=== PATIENT | female | born 1980 | race Caucasian/White ===

== ENCOUNTER 2018-11-03 13:30 | Emergency (ER) | payer SELFPAY ==
--- OUTSIDE RECORDS SUMMARY | 2018-11-03 13:34 | XMS REPORT | Clinical Summary ---
:1980 Author Organization [facility] Address [address] [place] [address] Care Team Providers Name Role Phone Jesusita Martinez DO Primary Care Provider Allergies No Known Allergies Medications Medication Sig Dispensed Refills Start Date End Date Status benztropine TAKE 1 TABLET 1 02/01/2018 Active (COGENTIN) 1 MG BY MOUTH TWICE tablet A DAY FOR EPS haloperidol Take 5 mg by 1 02/01/2018 Active (HALDOL) 5 MG mouth 2 (two) tablet times a day. hydrOXYzine TAKE 1 CAPSULE 0 02/08/2018 Active (VISTARIL) 25 MG BY MOUTH capsule NEEDED ONCE A NIGHT NEEDED FOR SLEEP ORALLY 30 DAYS QUEtiapine Take 200 mg by 1 02/01/2018 Active (SEROquel) 200 MG mouth nightly. tablet divalproex Take 500 mg by 1 02/01/2018 Active (DEPAKOTE) 500 MG mouth 2 (two) 24 hr tablet times a day. lamoTRIgine Take 150 mg by 1 01/20/2018 Active (LaMICtal) 150 MG mouth daily. tablet IBU 600 mg tablet Take 600 mg by 3 12/26/2017 Active mouth 3 (three) times a day as needed. etodolac (LODINE) Take 1 tablet 60 tablet 0 02/13/2018 02/13/2019 Active 400 MG (400 mg total) tabletIndications: by mouth 3 Acute pain of left (three) times knee a day as needed (moderate pain). etodolac (LODINE) TAKE 1 TABLET 1 02/08/2018 02/13/2018 Discontinued 400 MG tablet BY MOUTH TWICE A DAY FOR KNEE PAIN Active Problems Problem Noted Date Acute pain of left knee 02/13/2018 Schizophrenic disorder 02/13/2018 Bipolar 1 disorder 02/13/2018 Encounters Date Type Specialty Care Team Description 02/27/2018 Office Visit Orthopedic Surgery Jesusita Martinez, Patellar tendinitis of left knee (Primary Dx); DO Acute pain of left knee Majo Yu MD 02/13/2018 Lab Lab Jesusita Martinez, Acute pain of left knee DO 02/13/2018 Office Visit Family Medicine Jesusita Martinez, Acute pain of left knee (Primary Dx); DO Schizophrenic disorder; Bipolar 1 disorder after 11/02/2017 Family History Relation Name Status Comments Father Alive Mother Alive Social History Tobacco Use Types Packs/Day Years Used Date Never Smoker Smokeless Tobacco: Never Used Alcohol Use Drinks/Week oz/Week Comments Yes about 5 drinks a week Sex Assigned at Date Recorded Not on file Job Start Date Occupation Industry Not on file Not on file Not on file Travel History Travel Start Travel End No recent travel history available. Last Filed Vital Signs Vital Sign Reading Time Taken Blood Pressure 96/60 02/13/2018 9:36 AM CDT Pulse 97 02/13/2018 9:36 AM CDT Temperature - - Respiratory Rate - - Oxygen Saturation 95% 02/13/2018 9:36 AM CDT Inhaled Oxygen Concentration - - Weight 81.6 kg (180 lb) 02/13/2018 9:36 AM CDT Height - - Body Mass Index - - Plan of Treatment Health Maintenance Due Date Last Done Comments CERVICAL CANCER SCREENING 2001 INFLUENZA VACCINE 01/18/2019 Procedures Procedure Name Priority Date/Time Associated Comments Diagnosis XR KNEE 3 VW LEFT Routine 02/13/2018 2:38 Acute pain of left Results for this PM CDT knee procedure are in the results section. COMPREHENSIVE Routine 02/13/2018 2:10 Acute pain of left Results for this METABOLIC PANEL PM CDT knee procedure are in the results section. after 11/02/2017 Results XR Knee 3 Vw Left (02/13/2018 2:38 PM CDT) Narrative Performed At EXAMINATION:XR KNEE 3 VW LEFT [facility] CLINICAL HISTORY:M25.562 Pain in left knee, Left knee pain for 6 weeks COMPARISON:No Prior FINDINGS: No fracture or dislocation.Bony prominence noted at the proximal tibiofibular joint. Remaining joint spaces are maintained. Soft tissues are unremarkable. IMPRESSION: Focal bony prominence of the proximal tibiofibular joint. Unclear if this represents a small osteochondroma or early degenerative change. CT or MRI may be obtained for follow-up. Procedure Note Interface, Radiology Results 02/13/2018 3:58 PM CDT EXAMINATION: XR KNEE 3 VW LEFT CLINICAL HISTORY: M25.562 Pain in left knee, Left knee pain for 6 weeks COMPARISON: No Prior FINDINGS: No fracture or dislocation. Bony prominence noted at the proximal tibiofibular joint. Remaining joint spaces are maintained. Soft tissues are unremarkable. IMPRESSION: Focal bony prominence of the proximal tibiofibular joint. Unclear if this represents a small osteochondroma or early degenerative change. CT or MRI may be obtained for follow-up. Performing Organization Address City/State/Zipcode Phone Number [facility] [address] [place] [address] Comprehensive metabolic panel (02/13/2018 2:10 PM CDT) Glucose 101 (H) 65 - 99 mg/dL [facility] BUN, whole blood 12 6 - 20 mg/dL [facility] Creatinine 0.73 0.57 - 1.00 mg/dL [facility] EGFR Non-Afr. Austrian 106 >59 mL/min/1.73 [facility] EGFR 122 >59 mL/min/1.73 [facility] BUN/creatinine ratio 16 9 - 23 [facility] Sodium 141 134 - 144 mmol/L [facility] Potassium 4.5 3.5 - 5.2 mmol/L [facility] Chloride 102 96 - 106 mmol/L [facility] CO2 26 20 - 29 mmol/L [facility] Calcium 9.5 8.7 - 10.2 mg/dL [facility] Protein 6.9 6.0 - 8.5 g/dL [facility] Albumin, S 4.5 3.5 - 5.5 g/dL [facility] Globulin, total 2.4 1.5 - 4.5 g/dL [facility] Albumin/globulin ratio 1.9 1.2 - 2.2 [facility] Total bilirubin 0.5 0.0 - 1.2 mg/dL [facility] Alkaline phosphatase 82 39 - 117 IU/L [facility] AST 12 0 - 40 IU/L [facility] ALT 8 0 - 32 IU/L [facility] Specimen Blood Narrative Performed At Performed at: [facility] [address], [id number] Breaker Tender: Juan J Ramirez MD, Phone:[phone] Performing Organization Address City/State/Zipcode Phone Number [facility] after 11/02/2017 Insurance Payer Benefit Plan / Group Subscriber ID Type Phone Address [facility] [employer] xxxxxxxx PPO Advance Directives Patient has advance care planning documents on file. For more information, please contact:Simon Chambers[address] [place] [address]
--- OUTSIDE RECORDS SUMMARY | 2018-11-03 13:34 | XMS REPORT | Continuity of Care Document ---
:1980 Author Organization Interface Problems Problem Status Onset Classification Date Comments Source Date Reported Generalized Active Diagnosis 02/18/2018 [facility] anxiety [facility] disorder BMI Active Diagnosis 02/18/2018 [facility] 27.0-27.9,adult [place] Knee pain, Active Diagnosis 02/18/2018 [facility] bilateral [facility] Medications Medication Details Route Status Patient Ordering Order Source Instructions Provider Date HydrOXYzine 1 capsule Orally Active 25 MG Orally [facility] Pamoate as neededat once a day [facility] bedtime Lamotrigine 1 tablet Orally Active 100 MG Orally [place] Fady Once a day [facility] Ibuprofen 1 tablet Orally Active 600 MG Orally [place] Fady Three times a Mussaji day as needed Allergies, Adverse Reactions, Alerts Substance Category Reaction Severity Reaction Status Date Comments Source type Reported N.K.D.A. Adverse Info Not Adverse Active [facility] Reaction Available Reaction 8 [facility] Immunizations Immunization Date Given Site Status Last Updated Comments Source Results Order Results Value Reference Date Interpretation Comments Source Name Range Vital Signs Vital Sign Value Date Comments Source Heart Rate 80 12/26/2017 [facility] Diastolic (mm Hg) 69 12/26/2017 [facility] Systolic (mm Hg) 119 12/26/2017 [facility] Temperature Oral (F) 97.4 F 12/26/2017 [facility] Weight 178.1 12/26/2017 [facility] Height 67 12/26/2017 [facility] Encounters Location Location Encounter Encounter Reason Attending ADM DC Status Source Details Type Number For Provider Date Date Visit Procedures Procedure Code Date Perfomer Comments Source
--- OUTSIDE RECORDS SUMMARY | 2018-11-03 13:34 | XMS REPORT ---
:1980 [facility] Address [address] [place] [address] [address] Care Team Providers Name Role Phone Unavailable Unavailable Unavailable Problems This patient has no known problems. Allergies, Adverse Reactions, Alerts This patient has no known allergies or adverse reactions. Medications This patient has no known medications. Encounters Start End Encounter Admission Attending Care Care Encounter Date/Time Date/Time Type Type Clinicians Facility Department ID 2017-05-05 2017-05-05 Outpatient [facility] [id number] 00:00:00 00:00:00 2017-04-08 2017-04-08 Outpatient [facility] [id number] 11:26:45 11:26:45
--- OUTSIDE RECORDS SUMMARY | 2018-11-03 13:34 | XMS REPORT ---
:1980 Author Organization [employer] Care Team Providers Name Role Phone Fady Oneal Provider Role Unavailable Allergies, Adverse Reactions, Alerts Substance Reaction Event Type N.K.D.A. Info Not Available Non Drug Allergy Problems Problem Type Condition Code Onset Dates Condition Status Assessment Generalized anxiety disorder F41.1 Active Assessment BMI 27.0-27.9,adult Z68.27 Active Problem Generalized anxiety disorder F41.1 Active Assessment Knee pain, bilateral M25.561 Active Medications Medication Code Code Instructions Start End Status Dosage System Date Date HydrOXYzine [facility] 86672437096 25 MG Orally Active 1 capsule Pamoate once a day as neededat bedtime Lamotrigine [facility] 25908141892 100 MG Orally Active 1 tablet Once a day Ibuprofen [facility] 56595050744 600 MG Orally Active 1 tablet Three times a day as needed Vital Signs Date/Time: December 26, 2017 Cardiac Monitoring Heart Rate 80 /min Blood Pressure Diastolic 69 mm Hg Blood Pressure Systolic 119 mm Hg Temperature 97.4 F BMI 27.89 Index Weight 178.1 lbs Height 67 in Results No Known Results Summary Purpose [employer] Submission
--- NOTE | 2018-11-03 14:45 | EDPHYS ---
Physician Documentation [facility] Name: Shelly Soares Age: 38 yrs Sex: Female : 1980 Arrival Date: 11/03/2018 Time: 13:33 Bed 15 Private MD: ED Physician Iván Ramirez HPI: 11/03 14:30 This 38 yrs old Female presents to ER via Ambulatory with complaints of Drug gs Abuse, Psych Problem. 14:30 The patient presents to the emergency department with a history of substance abuse, gs Type: methamphetamines, cocaine. Onset: The symptoms/episode began/occurred 1 week(s) ago. Associated signs and symptoms: Pertinent positives; paranoia, substance abuse, Pertinent negatives: delusions, homicidal ideation, suicide ideation. Severity of symptoms: At their worst the symptoms were severe in the emergency department the symptoms are unchanged. The patient has experienced similar episodes in the past, chronically. Historical: - Allergies: 14:10 No Known Allergies; aj1 - Immunization history:: Adult Immunizations unknown. - Social history:: The patient lives with significant other. - Ebola Screening: : Patient denies travel to an Ebola-affected area in the 21 days before illness onset. ROS: 14:30 All other systems are negative. gs Exam: 14:30 Head/Face: Normocephalic, atraumatic. Eyes: Pupils equal round and reactive to light, gs extra-ocular motions intact. Lids and lashes normal. Conjunctiva and sclera are non-icteric and not injected. Cornea within normal limits. Periorbital areas with no swelling, redness, or edema. ENT: Nares patent. No nasal discharge, no septal abnormalities noted. Tympanic membranes are normal and external auditory canals are clear. Oropharynx with no redness, swelling, or masses, exudates, or evidence of obstruction, uvula midline. Mucous membranes moist. Neck: Trachea midline, no thyromegaly or masses palpated, and no cervical lymphadenopathy. Supple, full range of motion without nuchal rigidity, or vertebral point tenderness. No Meningismus. Chest/axilla: Normal chest wall appearance and motion. Nontender with no deformity. No lesions are appreciated. Respiratory: Lungs have equal breath sounds bilaterally, clear to auscultation and percussion. No rales, rhonchi or wheezes noted. No increased work of breathing, no retractions or nasal flaring. Abdomen/GI: Soft, non-tender, with normal bowel sounds. No distension or tympany. No guarding or rebound. No evidence of tenderness throughout. Back: No spinal tenderness. No costovertebral tenderness. Full range of motion. Skin: Warm, dry with normal turgor. Normal color with no rashes, no lesions, and no evidence of cellulitis. MS/ Extremity: Pulses equal, no cyanosis. Neurovascular intact. Full, normal range of motion. Neuro: Awake and alert, GCS 15, oriented to person, place, time, and situation. Cranial nerves II-XII grossly intact. Motor strength 5/5 in all extremities. Sensory grossly intact. Cerebellar exam normal. Normal gait. 14:30 Constitutional: The patient appears alert, awake, anxious. 14:30 Cardiovascular: Rate: tachycardic, Rhythm: regular, Pulses: no pulse deficits are appreciated. Vital Signs: 14:05 BP 136 / 91; Pulse 113; Resp 18; Temp 98.2; Pulse Ox 98% on R/A; Weight 66.68 kg (R); aj1 Height 5 ft. 5 in. (165.10 cm) (R); Pain 0/10; 14:05 Body Mass Index 24.46 (66.68 kg, 165.10 cm) aj1 MDM: 14:28 Patient medically screened. 14:30 Differential diagnosis: drug withdrawal. acute psychotic break, intoxication. Data gs reviewed: vital signs, nurses notes. Counseling: I had a detailed discussion with the patient and/or guardian regarding: the historical points, exam findings, and any diagnostic results supporting the discharge/admit diagnosis, the need for outpatient follow up. Response to treatment: There is no appreciated change of the patient's symptoms at this time. 14:45 ED course: refuses to take her psych meds refuses any treatment , lucid alert oriented. gs Administered Medications: No medications were administered Disposition: 11/03/18 14:44 Discharged to Home. Impression: Patient's other noncompliance with medication regimen, Unspecified psychosis not due to a substance or known physiological condition, Other stimulant abuse. - Condition is Stable. - Discharge Instructions: Stimulant Use Disorder-Methamphetamines, Psychosis. - Medication Reconciliation Form, Thank You Letter, Antibiotic Education, Prescription Opioid Use form. - Follow up: Private Physician; When: 2 - 3 days; Reason: Re-evaluation by your physician. Signatures: Alexia Coates RN RN aj1 Iván Ramirez MD MD gs Corrections: (The following items were deleted from the chart) 14:45 14:44 11/03/2018 14:44 Discharged to Home. Impression: Patient's other noncompliance gs with medication regimen; Unspecified psychosis not due to a substance or known physiological condition. Condition is Stable. Forms are Medication Reconciliation Form, Thank You Letter, Antibiotic Education, Prescription Opioid Use. Follow up: Private Physician; When: 2 - 3 days; Reason: Re-evaluation by your physician. 14:48 14:45 11/03/2018 14:44 Discharged to Home. Impression: Patient's other noncompliance aj1 with medication regimen; Unspecified psychosis not due to a substance or known physiological condition; Other stimulant abuse. Condition is Stable. Discharge Instructions: Psychosis, Stimulant Use Disorder-Methamphetamines. Forms are Medication Reconciliation Form, Thank You Letter, Antibiotic Education, Prescription Opioid Use. Follow up: Private Physician; When: 2 - 3 days; Reason: Re-evaluation by your physician. gs
--- NOTE | 2018-11-03 14:45 | ER ---
Nurse's Notes [facility] Name: Shelly Soares Age: 38 yrs Sex: Female : 1980 Arrival Date: 11/03/2018 Time: 13:33 Bed 15 Private MD: Diagnosis: Patient's other noncompliance with medication regimen;Unspecified psychosis not due to a substance or known physiological condition;Other stimulant abuse Presentation: 11/03 14:08 Presenting complaint: Significant other states: She has been having issues with aj1 addiction and drug abuse, she is manic and she is hearing voice, she has not slept in several days. Transition of care: patient was not received from another setting of care. Onset of symptoms is unknown. Risk Assessment: Do you want to hurt yourself or someone else? Patient reports no desire to harm self or others. Initial Sepsis Screen: Does the patient meet any 2 criteria? No. Patient's initial sepsis screen is negative. Does the patient have a suspected source of infection? No. Patient's initial sepsis screen is negative. Care prior to arrival: None. 14:08 Method Of Arrival: Ambulatory aj 14:08 Acuity: SETH 3 aj1 Triage Assessment: 14:11 General: Appears in no apparent distress. comfortable, Behavior is agitated, anxious, aj1 restless. Historical: - Allergies: 14:10 No Known Allergies; aj1 - Immunization history:: Adult Immunizations unknown. - Social history:: The patient lives with significant other. - Ebola Screening: : Patient denies travel to an Ebola-affected area in the 21 days before illness onset. Screenin:05 Abuse screen: Denies threats or abuse. Denies injuries from another. Nutritional aj1 screening: No deficits noted. Tuberculosis screening: No symptoms or risk factors identified. 14:48 Fall Risk None identified. aj1 Assessment: 13:37 Reassessment: called to triage. no answer. 14:01 General: Appears comfortable, well groomed, Behavior is agitated, inappropriate for aj1 age, restless, flight of ideas. Upon introducing myself to the patient, patient jumps out of her chair, shakes my hand states "Hi! Im Shelly! You've seen a ghost! I'm not a ghost I'm alive. She's going to cry! Let me get you a tissue!" Patient was offered a more comfortable spot on the stretcher with a warm blanket. Patient does not answer when asked if she would like to move. When asked again patient states "I heard you, I didn't say anything about wanting to move, what a waste of time!" Patient states that she hasn't slept in 8 days, states "I never sleep, I feel immune. I drink tap water.". Pain: Denies pain. 14:05 Neuro: Level of Consciousness is awake, alert, obeys commands, Oriented to person, aj place, time, situation. Cardiovascular: Patient's skin is warm and dry. Respiratory: Airway is patent Respiratory effort is even, unlabored, Respiratory pattern is regular, symmetrical. GI: No signs and/or symptoms were reported involving the gastrointestinal system. : No signs and/or symptoms were reported regarding the genitourinary system. EENT: No signs and/or symptoms were reported regarding the EENT system. Derm: No signs and/or symptoms reported regarding the dermatologic system. Skin is pink, warm \\T\\ dry. normal. Musculoskeletal: No signs and/or symptoms reported regarding the musculoskeletal system. Circulation, motion, and sensation intact. 14:11 Reassessment: When asked about her medical history patient states "I don't know the [facility] answer to these questions". Vital Signs: 14:05 BP 136 / 91; Pulse 113; Resp 18; Temp 98.2; Pulse Ox 98% on R/A; Weight 66.68 kg (R); aj1 Height 5 ft. 5 in. (165.10 cm) (R); Pain 0/10; 14:05 Body Mass Index 24.46 (66.68 kg, 165.10 cm) aj ED Course: 13:33 Patient arrived in ED. as 13:52 Iván Ramirez MD is Attending Physician. 14:01 Alexia Coates, RN is Primary Nurse. aj1 14:05 Patient has correct armband on for positive identification. aj1 14:05 No provider procedures requiring assistance completed. aj1 14:10 Triage completed. aj1 14:11 Arm band placed on Patient placed in an exam room. aj1 14:47 Patient did not have IV access during this emergency room visit. aj1 Administered Medications: No medications were administered Outcome: 14:44 Discharge ordered by . 14:48 Discharged to home ambulatory. aj1 14:48 Condition: good 14:48 Discharge instructions given to patient, Instructed on discharge instructions, follow up and referral plans. Demonstrated understanding of instructions, follow-up care. 14:48 Patient left the ED. aj1 Signatures: Alexia Coates RN RN aj1 Mercy Rooney Shelby, RN RN Iván Ramirez MD MD gs
== END 2018-11-03 14:48 | disposition home or self-care (01) ==
LOC: ER 13:30
DX: F29 Unspecified psychosis not due to a substance or known physiological condition (principal); F15.10 Other stimulant abuse, uncomplicated; Z91.14 Patient's other noncompliance with medication regimen
CPT/HCPCS: 99281